=== PATIENT | female | born 1985 | race Caucasian/White ===

== ENCOUNTER 2018-01-17 01:04 | Emergency (ER) | payer OTHER ==
[2018-01-17 01:17] LABS: ADD MAN DIFF? NO
[2018-01-17 01:21] LABS: WHITE BLOOD COUNT 10.1 10^3/ul (4.8-10.8)
[2018-01-17 01:21] LABS: BASOPHILS % 0.3 % (0.0-2.0); EOSINOPHILS # 0.1 10^3/ul (0.0-0.5); EOSINOPHILS % 0.7 % (0.0-7.0); HEMATOCRIT 40.9 % (37.0-47.0); HEMOGLOBIN 12.8 g/dl (12.0-16.0); LYMPHOCYTES # 3.8 10^3/ul (0.8-2.9); LYMPHOCYTES % 37.6 % (15.0-51.0); MEAN CORPUSCULAR HEMOGLOBIN 25.3 pg (29.0-33.0); MEAN CORPUSCULAR HGB CONC 31.3 g/dl (32.0-37.0); MEAN PLATELET VOLUME 9.8 fl (7.4-10.4); MONOCYTE # 0.8 10^3/ul (0.3-0.9); MONOCYTES % 7.6 % (0.0-11.0); NEUTROPHIL # 5.4 10^3/ul (1.6-7.5); NEUTROPHILS % 53.6 % (39.0-77.0); PLATELET COUNT 265 10^3/UL (140-415); RED BLOOD COUNT 5.05 10^6/ul (4.20-5.40); RED CELL DISTRIBUTION WIDTH 13.6 % (11.5-14.5)
[2018-01-17 01:40] LABS: ALANINE AMINOTRANSFERASE 26 IU/L (13-69); ALBUMIN 4.3 g/dl (3.3-4.9); ALBUMIN/GLOBULIN RATIO 1.43; ALKALINE PHOSPHATASE 58 IU/L (42-121); ANION GAP 10 (5-13); ASPARTATE AMINO TRANSFERASE 24 IU/L (15-46); BILIRUBIN,INDIRECT 0.2 mg/dl (0-1.1); BILIRUBIN,TOTAL 0.2 mg/dl (0.2-1.3); BLOOD UREA NITROGEN 22 mg/dl (7-20); CALCIUM 9.3 mg/dl (8.4-10.2); CARBON DIOXIDE 28 mmol/L (21-31); CHLORIDE 103 mmol/L (97-110); CHOL/HDL RATIO 3.7 RATIO; CHOLESTEROL 148 mg/dl (100-200); CREATININE 0.61 mg/dl (0.44-1.00); Estimated GFR > 60 mL/min (>60); GLUCOSE 128 mg/dl (70-220); HDL CHOLESTEROL 39 mg/dl (34-82); INR 0.89; LDL CHOLESTEROL,CALCULATED 83 mg/dl; LIPASE 283 U/L (23-300); POTASSIUM 4.5 mmol/L (3.5-5.1); PROTIME 12.1 Sec (11.9-14.9); PT RATIO 0.9; SODIUM 141 mmol/L (135-144); TOTAL PROTEIN 7.3 g/dl (6.1-8.1); TRIGLYCERIDES 128 mg/dl (0-149)
[2018-01-17 01:41] LABS: PARTIAL THROMBOPLASTIN TIME 30.3 Sec (23.0-35.0)
[2018-01-17] MEDS: IOHEXOL 300MG/ML 150 ML BTL (01:41)
[2018-01-17] MEDS: SOD CHLORIDE 0.9% 100 ML (01:42)
[2018-01-17 01:50] LABS: B-TYPE NATRIURETIC PEPTIDE 43 PG/ML (0-125)
[2018-01-17 01:51] LABS: TROPONIN-I < 0.012 ng/ml (0.000-0.120)
[2018-01-17 01:57] LABS: FREE THYROXINE INDEX (Calc) 0.85 ug/ml (0.65-3.89); T3 UPTAKE 30.4 % (23.5-40.5); T4 (THYROXINE) 2.8 ug/dl (5.5-11.0)
[2018-01-17 02:11] LABS: THYROID STIMULATING HORMONE 0.033 MIU/L (0.465-4.680)
[2018-01-17 03:55] LABS: TRIIODOTHYRONINE 3.98 ng/ml (0.97-1.69)
== END 2018-01-17 02:12 | disposition home or self-care (01) ==
LOC: E/R 02:12
DX: H92.01 Otalgia, right ear (principal); R07.9 Chest pain, unspecified
CPT/HCPCS: 36415; 70496; 70498; 71045; 80053; 80061; 83690; 83880; 84436; 84443; 84479; 84480; 84481; 84484; 85025; 85610; 85730; 99285-25